=== PATIENT | male | born 1975 | race Caucasian/White ===

== ENCOUNTER 2023-01-04 20:47 | Inpatient (IN) | payer BC, SELFPAY ==
[~2023-01-04 20:47] MED LIST: Iopamidol 370 76% 100 ML VIAL ONE
[2023-01-04 21:29] LABS: #Basophils 0.1 10x3/uL (0.0-0.2); #Eosinphils 0.6 10x3/uL (0.0-0.5); #Monocytes 0.8 10x3/uL (0.0-1.1); #Neutrophils 8.6 10x3/uL (1.5-8.4); %Basophils 0.5 % (0.0-2.0); %Eosinophils 4.9 % (0.0-6.0); %Lymphocytes 16.2 % (18.0-47.0); %Monocytes 6.6 % (0.0-10.0); %Neutrophils 70.9 % (40.0-75.0); Hematocrit 44.4 % (38.8-50.0); Hemoglobin 15.1 g/dL (13.5-17.5); Mean Corpuscular Hemoglobin 32.2 pg (27.0-33.0); Mean Corpuscular Volume 94.7 fl (81.2-95.1); Mean Platelet Volume 9.7 fl (7.4-10.4); Platelet Count 192 10x3/uL (150-450); Red Blood Cell (RBC) Count 4.69 10x6/uL (4.32-5.72); White Blood Cell (WBC) Count 12.2 10x3/uL (3.5-10.5)
[2023-01-04 21:40] LABS: ALT (SGPT) 41 U/L (8-55); AST (SGOT) 19 U/L (5-34); Albumin 4.2 g/dL (3.5-5.0); Alkaline Phosphatase 75 U/L (40-110); Anion Gap 17 mmol/L (10-20); BUN (Urea Nitrogen) 10 mg/dL (8.9-20.6); Bilirubin, Total 0.6 mg/dL (0.2-1.2); Calc. Creatinine Clearance 0 mL/min (70-130); Carbon Dioxide 27 mmol/L (22-29); Chloride 100 mmol/L (98-107); Estimated GFR 82; Globulin 2.9 g/dL (2.4-3.5); Glucose 112 mg/dL (70-105); Potassium 3.9 mmol/L (3.5-5.1); Protein, Total 7.1 g/dL (6.0-8.3); Sodium 140 mmol/L (136-145)
[2023-01-04] MEDS ORDERED: cefTRIAXone (ROCEPHIN) 2 GM VIAL ONE (21:56)
[2023-01-04] MEDS ORDERED: LevoFLOXacin 750 mg/D5W 150 ml Premix Bag ONE (21:57)
[2023-01-04 22:09] LABS: SARS-CoV-2 NAA Rapid Test Not Detected (NotDetected)
[2023-01-04] MEDS ORDERED: Ipratropium/Albuterol 3 ML NEB ONE (23:31)
[2023-01-04] MEDS ORDERED: methylPREDNISolone Sod Succ/PF 125 MG/2 ML VIAL ONE (23:40)
[2023-01-05] MEDS ORDERED: Acetaminophen 325 MG TAB PO PRN (00:49)
[2023-01-05] MEDS ORDERED: Ipratropium/Albuterol 3 ML NEB NEB PRN (00:52)
[2023-01-05] MEDS ORDERED: Arformoterol 15 MCG/2 ML NEB NEB SCH (01:15)
[2023-01-05 01:27] VITALS: BMI 28.7
[2023-01-05] MEDS ORDERED: Guaifenesin DM 100-10/5 ML UDCUP PO SCH (01:30)
[2023-01-05 04:46] LABS: Anion Gap 15 mmol/L (10-20); BUN (Urea Nitrogen) 12 mg/dL (8.9-20.6); Calc. Creatinine Clearance 100 mL/min (70-130); Calcium 8.8 mg/dL (7.8-10.44); Carbon Dioxide 25 mmol/L (22-29); Chloride 101 mmol/L (98-107); Estimated GFR 84; Glucose 132 mg/dL (70-105); Magnesium 2.2 mg/dL (1.6-2.6); Potassium 4.3 mmol/L (3.5-5.1); Sodium 137 mmol/L (136-145)
[2023-01-05 04:51] LABS: #Basophils 0.1 10x3/uL (0.0-0.2); #Eosinphils 0.1 10x3/uL (0.0-0.5); #Monocytes 0.3 10x3/uL (0.0-1.1); #Neutrophils 10.9 10x3/uL (1.5-8.4); %Basophils 0.5 % (0.0-2.0); %Monocytes 2.6 % (0.0-10.0); %Neutrophils 90.8 % (40.0-75.0); Hematocrit 41.8 % (38.8-50.0); Hemoglobin 14.3 g/dL (13.5-17.5); Mean Corpuscular HGB CONC 34.2 g/dL (32.0-36.0); Mean Corpuscular Volume 93.5 fl (81.2-95.1); Mean Platelet Volume 10.2 fl (7.4-10.4); Platelet Count 182 10x3/uL (150-450); Red Blood Cell (RBC) Count 4.47 10x6/uL (4.32-5.72)
[2023-01-05] MEDS: methylPREDNISolone Sod Succ 40 MG VIAL IVP SCH ×2 (06:29→21:21)
[2023-01-05] MEDS: Budesonide 0.5 MG/2 ML NEB INH SCH ×2 (09:15→18:18)
[2023-01-05] MEDS: Arformoterol 15 MCG/2 ML NEB NEB SCH ×2 (09:15→18:17)
[2023-01-05] MEDS: guaiFENesin ER 600 MG TAB PO SCH ×2 (11:00→21:44)
[2023-01-05] MEDS ORDERED: cefTRIAXone\\ROCEPHIN 1 GM in Sodium Chloride 0.9% 100 ML IVPB SCH (22:00)
[2023-01-05] MEDS ORDERED: LevoFLOXacin 750 mg/D5W 750 MG in Premix 1 BAG IVPB SCH (23:00)
[2023-01-06] MEDS: methylPREDNISolone Sod Succ 40 MG VIAL IVP SCH (06:40)
[2023-01-06 06:58] VITALS: TEMP 97.9
[2023-01-06] MEDS: Arformoterol 15 MCG/2 ML NEB NEB SCH (07:12)
[2023-01-06] MEDS: Budesonide 0.5 MG/2 ML NEB INH SCH (07:13)
[2023-01-06] MEDS: guaiFENesin ER 600 MG TAB PO SCH (08:57)
[2023-01-06 09:11] VITALS: BP 106/53
== END 2023-01-06 10:08 | disposition home or self-care (01) | DRG 189 ==
LOC: CSHERS 20:47 → CSHTELE 23:32
PROVIDERS: ADMIT Family Medicine; ATTEND Hospitalist
PROC: 5A09357 Assistance with Respiratory Ventilation, Less than 24 Consecutive Hours, Continuous Positive Airway Pressure (ICD-10-PCS; principal; 2023-01-06)
DX: J96.01 Acute respiratory failure with hypoxia (principal); J45.901 Unspecified asthma with (acute) exacerbation; E78.5 Hyperlipidemia, unspecified; F32.A Depression, unspecified; F41.9 Anxiety disorder, unspecified; G47.33 Obstructive sleep apnea (adult) (pediatric); Z88.1 Allergy status to other antibiotic agents; Z88.8 Allergy status to other drugs, medicaments and biological substances; Z11.52 Encounter for screening for COVID-19; Z91.012 Allergy to eggs; Z91.09 Other allergy status, other than to drugs and biological substances
CPT/HCPCS: 36415; 71046; 71275; 80048; 80053; 83605; 83735; 85025; 87040; 93005; 94640; 94660; 94760; 94762; 96365; 96366; 96367; 96375; J0696; J1650; J1956; J2920; J2930; J3490; J7620; J7626; Q9967